=== PATIENT | female | born 1985 | race Caucasian/White ===

== ENCOUNTER 2017-01-25 09:25 | Emergency (ER) | payer OTHER ==
[2017-01-25 10:09] LABS: BASOPHILS # (AUTO) 0.1 10^3/uL (0.0-0.1); BASOPHILS % (AUTO) 1.1 %; EOSINOPHILS % (AUTO) 0.7 %; HGB - HEMOGLOBIN 12.9 g/dL (12.0-16.0); LYMPHOCYTES # (AUTO) 1.6 10^3/uL (1.5-3.5); MEAN CORPUSCULAR HEMOGLOBIN 30.2 pg (27.0-31.0); MEAN CORPUSCULAR HGB CONC 34.9 g/dL (32.0-36.0); MEAN CORPUSCULAR VOLUME 86.6 fL (81.0-99.0); MEAN PLATELET VOLUME 9.9 fL (7.9-10.8); MONOCYTES # (AUTO) 0.6 10^3/uL (0.0-1.0); MONOCYTES % (AUTO) 9.7 %; NEUTROPHILS # (AUTO) 4.2 10^3/uL (1.5-6.6); NEUTROPHILS % (AUTO) 63.5 %; RED BLOOD COUNT 4.27 10^6/uL (4.20-5.40); RED CELL DISTRIBUTION WIDTH 12.8 % (12.0-15.0); UNCORRECTED WHITE BLOOD COUNT 6.6 x10^3/uL; WHITE BLOOD COUNT 6.6 x10^3/uL (4.8-10.8)
[2017-01-25 10:22] LABS: ALBUMIN/GLOBULIN RATIO 1.3 (1.0-2.2); BILIRUBIN,TOTAL 0.6 mg/dL (0.2-1.0); CALCIUM 8.9 mg/dL (8.5-10.3); CREATININE 0.7 mg/dL (0.4-1.0); TOTAL PROTEIN 7.5 g/dL (6.7-8.2)
--- NOTE | 2017-01-25 10:29 | ED Physician Documentation ---
PD HPI CHEST PAIN - Stated complaint Stated Complaint: CHEST PX - Chief complaint Chief Complaint: Cardiac - History obtained from History obtained from: Patient - History of Present Illness Timing - onset: Enter time (529), Today Timing - onset during: Sleep Timing - duration: Hours Timing - details: Abrupt onset, Now resolved Quality: Pressure, Tightness, Sharp Location: Epigastric Improved by: Nothing Worsened by: Other (nothing) Associated symptoms: Nausea. No: Shortness of air, Diaphoresis, Vomiting, Feeling faint / dizzy, General Weakness, Palpitations, Cough Similar symptoms before: Has not had sx before Recently seen: Not recently seen - Additional information Additional information: 31 y/o female awoke with chest pain this morning. She has had a recent sun burn and has been taking some ibuprofen. Review of Systems Constitutional: denies: Fever, Chills, Myalgias, Fatigue Eyes: denies: Decreased vision Ears: denies: Ear pain Nose: denies: Congestion Throat: denies: Sore throat Cardiac: reports: Chest pain / pressure. denies: Palpitations Respiratory: denies: Dyspnea, Cough GI: reports: Abdominal Pain, Nausea. denies: Vomiting, Constipation, Diarrhea : denies: Dysuria, Frequency Skin: denies: Rash Musculoskeletal: denies: Neck pain, Back pain, Extremity pain Neurologic: denies: Generalized weakness, Focal weakness PD PAST MEDICAL HISTORY - Past Surgical History Past Surgical History: No - Present Medications Home Medications: Ambulatory Orders Medication Instructions Recorded Confirmed Cetirizine [ZyrTEC] 1 spray PO DAILY 01/25/17 01/25/17 Fluticasone [Flonase] 10 mg PO DAILY 01/25/17 01/25/17 - Allergies Allergies/Adverse Reactions: Allergies Allergy/AdvReac Type Severity Reaction Status Date / Time Sulfa (Sulfonamide Allergy Rash Verified 07/08/15 10:37 Antibiotics) Penicillins AdvReac Unknown Verified 07/08/15 10:37 - Social History Does the pt smoke?: No Smoking Status: Never smoker Does the pt drink ETOH?: No Does the pt have substance abuse?: No - Immunizations Immunizations are current?: No Immunizations: TDAP >10years/unknown PD ED PE NORMAL - Vitals Vital signs reviewed: Yes (hypertension ) - General General: Alert and oriented X 3, No acute distress, Well developed/nourished - HEENT HEENT: Atraumatic, PERRL, EOMI - Neck Neck: Supple, no meningeal sign, No bony TTP - Cardiac Cardiac: RRR, No murmur - Respiratory Respiratory: No respiratory distress, Clear bilaterally - Abdomen Abdomen: Normal bowel sounds, Soft, Non tender, Non distended, No organomegaly - Back Back: No CVA TTP, No spinal TTP - Derm Derm: Normal color, Warm and dry, No rash - Extremities Extremities: No deformity, No edema - Neuro Neuro: No motor deficit, No sensory deficit - Psych Psych: Normal mood, Normal affect Results - Vitals Vitals: Vital Signs - 24 hr 01/25/17 01/25/17 09:29 12:04 Temperature 36.9 C 36.9 C Heart Rate 94 90 Respiratory 20 18 Rate Blood Pressure 146/74 H 122/68 O2 Saturation 100 99 Oxygen O2 Source Room air - EKG (time done) 0942 Rate: Rate (enter#) (81) Rhythm: NSR Ischemia: Normal ST segments Compare to prior EKG: Old EKG unavailable Computer interpretation: Agree with computer - Labs Labs: Laboratory Tests 01/25/17 01/25/17 01/25/17 10:00 10:00 10:00 WBC 6.6 RBC 4.27 Hgb 12.9 Hct 37.0 MCV 86.6 MCH 30.2 MCHC 34.9 RDW 12.8 Plt Count 190 MPV 9.9 Neut # 4.2 Lymph # 1.6 Richardson # 0.6 Eos # 0.0 Baso # 0.1 Absolute Nucleated RBC 0.00 Nucleated RBCs 0.0 Sodium 138 Potassium 4.0 Chloride 102 Carbon Dioxide 29 Anion Gap 7.0 BUN 13 Creatinine 0.7 Estimated GFR (MDRD) 98 Glucose 85 Calcium 8.9 Total Bilirubin 0.6 AST 18 ALT 12 Alkaline Phosphatase 45 Troponin I < 0.04 Total Protein 7.5 Albumin 4.3 Globulin 3.2 Albumin/Globulin Ratio 1.3 Lipase 29 Urine Color Urine Clarity Urine pH Ur Specific [place] Urine Protein Urine Glucose (UA) Urine Ketones Urine Occult Blood Urine Nitrite Urine Bilirubin Urine Urobilinogen Ur Leukocyte Esterase Ur Microscopic Review Urine Culture Comments Urine HCG, Qual 01/25/17 01/25/17 10:30 10:32 WBC RBC Hgb Hct MCV MCH MCHC RDW Plt Count MPV Neut # Lymph # Richardson # Eos # Baso # Absolute Nucleated RBC Nucleated RBCs Sodium Potassium Chloride Carbon Dioxide Anion Gap BUN Creatinine Estimated GFR (MDRD) Glucose Calcium Total Bilirubin AST ALT Alkaline Phosphatase Troponin I Total Protein Albumin Globulin Albumin/Globulin Ratio Lipase Urine Color YELLOW Urine Clarity CLEAR Urine pH 6.0 Ur Specific [place] <=1.005 <=1.005 Urine Protein NEGATIVE Urine Glucose (UA) NEGATIVE Urine Ketones NEGATIVE Urine Occult Blood NEGATIVE Urine Nitrite NEGATIVE Urine Bilirubin NEGATIVE Urine Urobilinogen 0.2 (NORMAL) Ur Leukocyte Esterase NEGATIVE Ur Microscopic Review NOT INDICATED Urine Culture Comments NOT INDICATED Urine HCG, Qual NEGATIVE - Rads (name of study) 2 view chest Radiology: Prelim report reviewed (Impression: No acute pulmonary consolidation. ), EMP read indepedently, See rad report PD MEDICAL DECISION MAKING - ED course Complexity details: reviewed old records, reviewed results, re-evaluated patient , considered differential, d/w patient ED course: 31 y/o female with substernal chest pain has had resolution of her symptoms and my concern is that the ibuprofen she has been taking for her sunburn are likely the culprit. She did not have pain here to interrogate with viscous lido and we are left with empiric treatment. Departure - Departure Disposition: 01 Home, Self Care Clinical Impression: Gastritis Qualifiers: Gastritis type: other gastritis Chronicity: acute Gastritis bleeding: without bleeding Qualified Code(s): K29.00 - Acute gastritis without bleeding Condition: Stable Instructions: ED PUD Vs Gastritis Follow-Up: JALYN GREER [Primary Care Provider] - Comments: Today it is likely that the pain you were experiencing was due to the use of ibuprofen. Always take this medication with food and in the mean time take pepcid a/c daily for the next week. Discharge Date/Time: 01/25/17 12:04
[2017-01-25 10:40] LABS: BILIRUBIN,URINE NEGATIVE (NEGATIVE)
[2017-01-25 10:44] LABS: UA CHARGE (STRIP ONLY) YES; UR CULTURE IF IND NOT INDICATED
[2017-01-25 10:44] LABS: HCG UR QUAL NEGATIVE
[2017-01-25 12:05] VITALS: BP 122/68
--- NOTE | 2017-01-25 15:17 | XRAY Preliminary Report ---
Exam: XR Chest 2 View PA/LAT IMPRESSION: No acute pulmonary consolidation. [facility] SITE ID: [id number]
--- NOTE | 2017-01-25 15:20 | XRAY Report ---
EXAM: CHEST RADIOGRAPHY EXAM DATE: 01/25/2017 11:45 AM. CLINICAL HISTORY: Chest pain. COMPARISON: None. TECHNIQUE: 2 views. FINDINGS: Lungs/Pleura: No focal opacities evident. No pleural effusion. No pneumothorax. Normal volumes. Mediastinum: Heart and mediastinal contours are unremarkable. Other: Mild rightward curvature upper thoracic spine. IMPRESSION: No acute pulmonary consolidation. [facility] Referring Provider Line: [phone] SITE ID: [id number]
== END 2017-01-25 12:04 | disposition home or self-care (01) ==
LOC: ED 09:25
DX: K29.00 Acute gastritis without bleeding (principal); R07.89 Other chest pain
CPT/HCPCS: 36415; 71020; 80053; 81001; 81003; 81025; 83690; 84484; 85025; 87086; 93005; 93010; 99283; 99285

== ENCOUNTER 2017-04-08 12:05 | Emergency (ER) | payer OTHER ==
[2017-04-08 12:18] VITALS: BP 128/77
[2017-04-08 12:34] LABS: BILIRUBIN,URINE NEGATIVE (NEGATIVE); PH,URINE 5.5 PH (5.0-7.5); UA w/ MICROSCOPIC CHARGE YES
--- NOTE | 2017-04-08 12:38 | ED Physician Documentation ---
PD HPI BACK PAIN - Stated complaint Stated Complaint: BACK PX/NAUSEA - Chief complaint Chief Complaint: UTI - History obtained from History obtained from: Patient - History of Present Illness Timing - onset: Other (32-year-old healthy woman with about 2 weeks of urinary frequency and suprapubic pressure and low back pain and some nausea. This was preceded by what sounds like a viral illness with vomiting that is all gone. Last UTI was 9 years ago. No fevers. Azo does help her symptoms.) Review of Systems Constitutional: denies: Fever, Chills Respiratory: denies: Dyspnea, Cough GI: denies: Abdominal Pain, Diarrhea, Hematemesis, Bloody / black stool PD PAST MEDICAL HISTORY - Past Surgical History Past Surgical History: No - Present Medications Home Medications: Ambulatory Orders Medication Instructions Recorded Confirmed Cetirizine [ZyrTEC] 1 spray PO DAILY 01/25/17 04/08/17 Fluticasone [Flonase] 10 mg PO DAILY 01/25/17 04/08/17 Ciprofloxacin [Cipro] 250 mg PO Q12H #6 tablet 04/08/17 HYDROcod/ACETAM 5/325 [[place] 5/325] 1 - 2 ea PO Q6H PRN #10 tablet 04/08/17 - Allergies Allergies/Adverse Reactions: Allergies Allergy/AdvReac Type Severity Reaction Status Date / Time Sulfa (Sulfonamide Allergy Rash Verified 07/08/15 10:37 Antibiotics) Penicillins AdvReac Unknown Verified 07/08/15 10:37 - Social History Does the pt smoke?: No Smoking Status: Never smoker Does the pt drink ETOH?: No Does the pt have substance abuse?: No - Immunizations Immunizations are current?: No Immunizations: TDAP >10years/unknown PD ED PE NORMAL - Vitals Vital signs reviewed: Yes - General General: Alert and oriented X 3, No acute distress - Abdomen Abdomen: Soft, Non tender - Back Back: No CVA TTP, No spinal TTP - Neuro Neuro: Alert and oriented X 3, Normal speech - Psych Psych: Normal mood, Normal affect Results - Vitals Vitals: Vital Signs - 24 hr 04/08/17 12:16 Temperature 36.6 C Heart Rate 70 Respiratory 16 Rate Blood Pressure 128/77 O2 Saturation 100 Oxygen O2 Source Room air - Labs Labs: Laboratory Tests 04/08/17 12:25 Urine Color ORANGE Urine Clarity CLEAR Urine pH 5.5 Ur Specific [place] 1.010 Urine Protein [employer] Urine Glucose (UA) [employer] Urine Ketones NEGATIVE Urine Occult Blood NEGATIVE Urine Nitrite [employer] Urine Bilirubin NEGATIVE Urine Urobilinogen [employer] Ur Leukocyte Esterase [employer] Urine RBC None Seen Urine WBC 0-3 Ur Squamous Epith Cells FEW Squamous Urine Bacteria None Seen Ur Microscopic Review INDICATED Urine Culture Comments NOT INDICATED Urine HCG, Qual NEGATIVE PD MEDICAL DECISION MAKING - ED course ED course: 32-year-old woman with symptoms most consistent with UTI. However her urinalysis is negative. I discussed and recommended moving her to a private room for pelvic examination and potential ultrasound, wet mount, KEILA, swabs. She declined, wants to trial some antibiotics given her typical symptoms and will follow up with her physician. Departure - Departure Disposition: 01 Home, Self Care Clinical Impression: Cystitis Condition: Good Record reviewed to determine appropriate education?: Yes Instructions: ED UTI Cystitis Female Prescriptions: Ciprofloxacin [Cipro] 250 mg PO Q12H #6 tablet HYDROcod/ACETAM 5/325 [[place] 5/325] 1 - 2 ea PO Q6H PRN #10 tablet PRN Reason: Pain Comments: Return immediately if you develop fever or other new symptoms. Or if not better in the next few days, follow-up with your doctor as scheduled.
[2017-04-08 12:42] LABS: HCG UR QUAL NEGATIVE
[2017-04-08 12:43] LABS: WBC,URINE 0-3 /HPF (0-5)
[2017-04-08 12:44] LABS: UR CULTURE IF IND NOT INDICATED
== END 2017-04-08 13:13 | disposition home or self-care (01) ==
LOC: ED 12:05
DX: N30.90 Cystitis, unspecified without hematuria (principal)
CPT/HCPCS: 81001; 81003; 81025; 87086; 99282; 99283

== ENCOUNTER 2018-12-19 12:38 | Emergency (ER) | payer OTHER ==
[2018-12-19 13:17] LABS: BASOPHILS # (AUTO) 0.1 10^3/uL (0.0-0.1); BASOPHILS % (AUTO) 1.3 %; EOSINOPHILS # (AUTO) 0.1 10^3/uL (0.0-0.7); EOSINOPHILS % (AUTO) 1.4 %; HGB - HEMOGLOBIN 13.2 g/dL (12.0-16.0); LYMPHOCYTES # (AUTO) 1.8 10^3/uL (1.5-3.5); LYMPHOCYTES % (AUTO) 23.5 %; MEAN CORPUSCULAR HEMOGLOBIN 29.8 pg (27.0-31.0); MEAN CORPUSCULAR HGB CONC 34.2 g/dL (32.0-36.0); MEAN CORPUSCULAR VOLUME 87.3 fL (81.0-99.0); MEAN PLATELET VOLUME 9.6 fL (7.9-10.8); MONOCYTES # (AUTO) 0.6 10^3/uL (0.0-1.0); MONOCYTES % (AUTO) 7.3 %; NEUTROPHILS # (AUTO) 5.1 10^3/uL (1.5-6.6); NEUTROPHILS % (AUTO) 66.5 %; PLT - PLATELET COUNT 218 10^3/uL (130-450); RED BLOOD COUNT 4.41 10^6/uL (4.20-5.40); RED CELL DISTRIBUTION WIDTH 13.1 % (12.0-15.0); WHITE BLOOD COUNT 7.7 x10^3/uL (4.8-10.8)
[2018-12-19 13:28] LABS: ALBUMIN 4.7 g/dL (3.2-5.5); ALBUMIN/GLOBULIN RATIO 1.6 (1.0-2.2); BILIRUBIN,TOTAL 0.7 mg/dL (0.2-1.0); CALCIUM 9.3 mg/dL (8.5-10.3); CREATININE 0.7 mg/dL (0.4-1.0); TOTAL PROTEIN 7.6 g/dL (6.7-8.2)
--- NOTE | 2018-12-19 13:34 | ED Physician Documentation ---
History of Present Illness - Stated complaint Stated Complaint: ABD PAIN - Chief complaint Chief Complaint: Abd Pain - History obtained from History obtained from: Patient - History of Present Illness Timing: Prior to arrival - Additonal information Additional information: Patient is a previously healthy 33-year-old female presenting with right lower quadrant pain that initially began after completing her usual morning run earlier today. Patient reports that she has been otherwise well and denies other abdominal pain, radiation of pain, GERD-like symptoms, nausea, vomiting, urinary changes, stool changes, abnormal vaginal bleeding, vaginal pain, or other concerns. Patient reports that pain is very specific and worsens with movement. Patient also reports chronic low back pain which she is experiencing today, however, this is her typical pain and not worse than usual. Patient denies any particular worsening or improving factors to her complaints. No other known trauma or injury. Review of Systems GI: reports: Abdominal Pain. denies: Nausea, Vomiting, Constipation, Diarrhea : denies: Dysuria Musculoskeletal: reports: Back pain PD PAST MEDICAL HISTORY - Past Medical History GI: Other (IBS) - Past Surgical History Past Surgical History: No - Present Medications Home Medications: Ambulatory Orders Medication Instructions Recorded Confirmed Cetirizine [ZyrTEC] 10 mg PO DAILY 01/25/17 12/19/18 - Allergies Allergies/Adverse Reactions: Allergies Allergy/AdvReac Type Severity Reaction Status Date / Time Sulfa (Sulfonamide Allergy Rash Verified 07/08/15 10:37 Antibiotics) Penicillins AdvReac Unknown Verified 07/08/15 10:37 - Social History Does the pt smoke?: No Smoking Status: Never smoker Does the pt drink ETOH?: No Does the pt have substance abuse?: No - Immunizations Immunizations are current?: No Immunizations: TDAP >10years/unknown PD ED PE NORMAL - General General: Alert and oriented X 3, No acute distress, Well developed/nourished, Other (Walking around the room, eating apple.) - HEENT HEENT: Atraumatic, Moist mucous membranes - Cardiac Cardiac: RRR, No murmur - Respiratory Respiratory: No respiratory distress, Clear bilaterally - Abdomen Abdomen: Normal bowel sounds, Soft, Non distended. No: Non tender (Point t enderness in midright lower quadrant, however, negative Duong sign, McBurney's point tenderness. No rebound or guarding present.) - Back Back: No CVA TTP, No spinal TTP - Derm Derm: Normal color, Warm and dry, No rash - Extremities Extremities: No deformity, No tenderness to palpate - Neuro Neuro: Alert and oriented X 3, No motor deficit, No sensory deficit - Psych Psych: Normal mood, Normal affect Results - Vitals Vitals: Vital Signs - 24 hr 12/19/18 12/19/18 12:56 14:13 Temperature 37.4 C 37.2 C Heart Rate 86 62 Respiratory 16 16 Rate Blood Pressure 143/88 H 111/70 O2 Saturation 100 100 Oxygen O2 Source Room air - Labs Labs: Laboratory Tests 12/19/18 12/19/18 12/19/18 13:05 13:05 13:45 WBC 7.7 RBC 4.41 Hgb 13.2 Hct 38.5 MCV 87.3 MCH 29.8 MCHC 34.2 RDW 13.1 Plt Count 218 MPV 9.6 Neut # (Auto) 5.1 Lymph # (Auto) 1.8 [place] # (Auto) 0.6 Eos # (Auto) 0.1 Baso # (Auto) 0.1 Absolute Nucleated RBC 0.00 Nucleated RBC % 0.1 Sodium 139 Potassium 4.0 Chloride 100 L Carbon Dioxide 27 Anion Gap 12.0 BUN 13 Creatinine 0.7 Estimated GFR (MDRD) 97 Glucose 92 Calcium 9.3 Total Bilirubin 0.7 AST 25 ALT 17 Alkaline Phosphatase 47 Total Protein 7.6 Albumin 4.7 Globulin 2.9 Albumin/Globulin Ratio 1.6 Lipase 33 Urine Color YELLOW Urine Clarity CLEAR Urine pH 6.0 Ur Specific [place] 1.020 Urine Protein NEGATIVE Urine Glucose (UA) NEGATIVE Urine Ketones NEGATIVE Urine Occult Blood NEGATIVE Urine Nitrite NEGATIVE Urine Bilirubin NEGATIVE Urine Urobilinogen 0.2 (NORMAL) Ur Leukocyte Esterase NEGATIVE Ur Microscopic Review NOT INDICATED Urine Culture Comments NOT INDICATED Urine HCG, Qual NEGATIVE PD MEDICAL DECISION MAKING - ED course Complexity details: reviewed results, re-evaluated patient, considered differential, d/w patient, d/w family ED course: Have higher suspicion for muscular skeletal injury particularly given onset following running. However, also considered intra-abdominal pathology such as cholelithiasis, acute cholecystitis, appendicitis, small bowel obstruction, diverticulitis, AAA, as well as renal disease including pyelonephritis or UTI, and ovarian pathology including ovarian cysts or torsion. However, I feel these are less likely.Patient ambulating and eating upon my entry into the room. Did ask patient to remain n.p.o. in case pathology was found. Physical exam relatively unremarkable. Also considered other pathology including psoas abscess, although patient has no significant systemic signs of illness. Do not find evidence of CVA tenderness that would raise high suspicion for renal disease. Screening lab work all returned relatively unremarkable. testing negative making or ectopic unlikely. Urinalysis also unremarkable. CT imaging obtained to further evaluate.CT imaging returned unremarkable. At this time, I feel the patient is safe to discharge home with strict return precautions, appropriate follow-up, and supportive cares. Advised patient of results and recommendations and she is comfortable with this plan. Departure - Departure Disposition: 01 Home, Self Care Clinical Impression: Musculoskeletal pain Abdominal pain Qualifiers: Abdominal location: right lower quadrant Qualified Code(s): R10.31 - Right lower quadrant pain Condition: Good Instructions: ED Abdominal Pain Unkn Cause Follow-Up: JALYN GREER [Primary Care Provider] - Comments: Recommend hydration and advancing diet as tolerated. Given concern for musculoskeletal nature of injury, also recommend ibuprofen/Tylenol to reduce pain and inflammation, as well as use of heating pad to relax muscles. Please follow-up with primary care physician in the next 2-3 days and return to ED sooner if expands worsening pain, vomiting, urine or stool changes, abnormal vaginal bleeding or pain, or other concerns.
[2018-12-19 14:10] LABS: BILIRUBIN,URINE NEGATIVE (NEGATIVE); GLUCOSE, URINE (UA) NEGATIVE (NEGATIVE); KETONES,URINE (UA) NEGATIVE (NEGATIVE); LEUKOCYTE ESTERASE, URINE NEGATIVE (NEGATIVE); NITRITE,URINE NEGATIVE (NEGATIVE); OCCULT BLOOD,URINE NEGATIVE (NEGATIVE); PROTEIN,URINE NEGATIVE (NEGATIVE); UROBILINOGEN,URINE 0.2 (NORMAL) E.U./dL (NORMAL)
[2018-12-19 14:13] LABS: CLARITY,URINE CLEAR (CLEAR); HCG UR QUAL NEGATIVE
[2018-12-19] MEDS ORDERED: IOPAMIDOL-300 100 ML VIAL ONE (14:57)
[2018-12-19] MEDS ORDERED: IOPAMIDOL-300 100 ML VIAL IVP ONE (15:13)
--- NOTE | 2018-12-19 15:17 | CT Report ---
Reason: Sudden onset RLQ pain after running Procedure Date: 12/19/2018 Accession Number: [id number] / [id number] Procedure: CT - Abdomen/Pelvis W CPT Code: FULL RESULT: EXAM: CT ABDOMEN AND PELVIS EXAM DATE: 12/19/2018 03:12 PM. CLINICAL HISTORY: Right lower quadrant pain. COMPARISONS: None. TECHNIQUE: Routine helical CT imaging was performed through the abdomen and pelvis. IV contrast: 100 mL of Isovue-300. Enteric contrast: No. Reconstructions: Coronal and sagittal. In accordance with CT protocol optimization, one or more of the following dose reduction techniques were utilized for this exam: automated exposure control, adjustment of mA and/or KV based on patient size, or use of iterative reconstructive technique. FINDINGS: Lung Bases: Unremarkable. Liver: Normal. No masses. Gallbladder/Bile Ducts: Unremarkable. Spleen: Normal. Pancreas: Normal. Adrenal Glands: Normal. Kidneys: Normal. No masses or hydronephrosis. Peritoneal Cavity/Bowel: Normal. No free fluid, free air or adenopathy. No masses or acute inflammatory process. The appendix is well visualized and normal. Pelvic Organs: Normal. The bladder and visualized pelvic organs are within normal limits. Vasculature: No aneurysms or other significant abnormality. Bones: No significant abnormality. Other: None. IMPRESSION: Normal abdomen and pelvis CT. [facility]
[2018-12-19 15:53] VITALS: BP 119/78
== END 2018-12-19 15:53 | disposition home or self-care (01) ==
LOC: ED 12:38
DX: R10.31 Right lower quadrant pain (principal); M79.18 Myalgia, other site
CPT/HCPCS: 36415; 74177; 80053; 81003; 81025; 83690; 85025; 99283; Q9967; 81001; 87086